=== PATIENT | male | born 1995 | race Caucasian/White ===

== ENCOUNTER 2024-01-26 14:57 | Emergency (ER) | payer OTHER, SELFPAY ==
[2024-01-26 15:01] VITALS: BP 162/68; PULSE 74; RESP 16; TEMP 36.5; O2SAT 100
[2024-01-26 15:16] VITALS: BP 162/68; PULSE 74; RESP 16; TEMP 36.5; O2SAT 100
--- NOTE | 2024-01-26 15:18 | ED.GENADUL_ITS ---
Discharge Plan Disposition Patient Disposition: Home Condition: Stable Discharge Details Chief Complaint: EarProblem Clinical Impression: Perforated ear drum ED Provider: Levon Pizano Discharge Instructions Instructions: Ruptured Eardrum (DC) Additional Instructions: We are discharging you on ofloxacin eardrops, please instill 10 drops each day into your right ear for the next week. Ensure that you do not get water or foreign material into your ear over the next several weeks as it takes approximately 4 to 6 weeks for the eardrum to heal. If you experience any worsening symptoms please return to the emergency department. Follow-up closely with your primary care physician and discuss possible referral to nuclear criticality safety engineer when you return to [place]. HPI General Date/Time Provider Initiated Documentation: 01/26/24 15:14 . HPI Narrative: 28-year-old male presents with right ear pain after diving into a [place] earlier today. Pain and muffled hearing in right ear. No nausea vomiting fevers chills or discharge. Related Data Allergies Allergy/AdvReac Type Severity Reaction Status Date / Time amoxicillin AdvReac Unknown Unknown Verified 01/26/24 15:07 General Stated Complaint: EarProblem HARMAN: 4 Exam Narrative Exam Narrative: Alert oriented interactive Pupils equal round reactive to light, no nystagmus, perforated right TM without evidence of bleeding or discharge, normal left TM No respiratory distress speaking full sentences Moving all extremities without deficit ambulatory without ataxia Course Vital Signs Vital signs: Vital Signs Temperature 36.5 C 01/26/24 15:01 Pulse 74 01/26/24 15:01 Respiratory Rate 16 01/26/24 15:01 Blood Pressure 162/68 H 01/26/24 15:01 Pulse Oximetry 100 01/26/24 15:01 Temperature 36.5 C 01/26/24 15:16 Temperature Source Temporal Artery Scan 01/26/24 15:16 Pulse 74 01/26/24 15:16 Respiratory Rate 16 01/26/24 15:16 Respiratory Effort Normal 01/26/24 15:11 Blood Pressure 162/68 H 01/26/24 15:16 Blood Pressure Position Sitting 01/26/24 15:16 Pulse Oximetry 100 01/26/24 15:16 Oxygen Delivery Method Room Air 01/26/24 15:16 Oxygen Flow Rate 0 01/26/24 15:16 Medical Decision Making 28-year-old male presents with right perforated eardrum after diving into a [place], no evidence of bleeding or discharge, perforated TM on right, normal TM on left, no nystagmus nausea vomiting headache or systemic signs of illness. Afebrile nontoxic neurologically intact. Given injury sustained in the [place] will treat with ofloxacin drops. Patient encouraged to follow-up with primary care and ENT when he returns to [place]. Will also give patient an inhale r as he has run out of his albuterol. No respiratory symptoms currently. Quality:[facility] Health Related Social Needs: No Data to Display [facility] All Active Problems (Updated 01/26/24 @ 15:22 by Levon Pizano MD) Perforated ear drum (Acute) Social History Smoking risk assessment performed?: No
[2024-01-26] MEDS: Albuterol HFA 8 GM 60 PUFF INH IH (15:19)
== END 2024-01-26 15:29 | disposition home or self-care (01) ==
PROVIDERS: Emergency Provider Emergency Medicine
DX: H72.91 Unspecified perforation of tympanic membrane, right ear (principal)
CPT/HCPCS: 99283